=== PATIENT | female | born 1945 | race Caucasian/White ===

== ENCOUNTER → 2017-01-02 | Outpatient (CLI) | payer OTHER ==
[~2017-01-02] MED LIST: OPHTHALMIC IRRIG SOLUTION 120 ML ONE; PILOCARPINE 2% 15ML OPH ONE; PROPARACAINE 0.5% 15 ML OPH ONE
== END | disposition home or self-care (01) ==
LOC: RAD 10:37
PROVIDERS: ATTEND Ophthalmology
DX: H40.20X0 Unspecified primary angle-closure glaucoma, stage unspecified (principal)
CPT/HCPCS: 66761; Z7610

== ENCOUNTER 2017-09-21 11:18 | Emergency (ER) | payer OTHER ==
[~2017-09-21] VITALS: Ht 157.5 cm; Wt 42.5 kg
[2017-09-21 11:26] VITALS: Ht 157.5 cm; Wt 42.5 kg
--- NOTE | 2017-09-21 12:13 | ERD ---
ER Documentation Chief Complaint Chief Complaint R. eye pain/swelling x 3 days, seen @ [facility] x yesterday HPI The patient is a 72-year-old female, presenting to the ER because of right inferior orbital redness and swelling for 3 days, seen at [facility] yesterday, was given IV antibiotic and discharged with Augmentin She is not getting better, therefore she came to the ER. She denies headache, blurred vision, diplopia, neck pain, chest pain, dyspnea, abdominal pain, vomiting. She does not smoke nor drink Past medical history: Dyslipidemia Past surgical history: Glaucoma ROS All systems reviewed and are negative except as per history of present illness. Allergies Allergies: Coded Allergies: No Known Allergy (Unverified , 09/21/17) Physical Exam Vitals Vital Signs Date Time Temp Pulse Resp B/P Pulse Ox O2 Delivery O2 Flow Rate FiO2 09/21/17 17:00 98.3 99 20 99/72 100 Room Air 09/21/17 16:04 98.3 77 20 125/59 100 Room Air 09/21/17 14:00 98.3 77 20 128/53 98 Nasal Cannula 2.0 09/21/17 13:22 98.3 72 20 134/59 100 Room Air 09/21/17 11:26 99.2 104 19 137/66 98 Physical Exam Const: No acute distress. Head: Atraumatic. Eyes: Normal Conjunctiva. ENT: Normal External Ears, Nose and Mouth.infero-orbital erythema with fluctuance, No nystagmus, right conjunctiva is erythematous, no discharge Neck: Full range of motion. No meningismus. Resp: Clear to auscultation bilaterally. Cardio: Regular rate and rhythm. Abd: Soft, non distended, normal bowel sounds, non tender. Skin: No petechiae or rashes. Back: No midline or flank tenderness. Ext: No cyanosis, or edema. Neur: Awake and alert. No focal deficit Psych: Normal Mood and Affect. Result Diagram: 09/21/17 1235 09/21/17 1235 Results 24 hrs Laboratory Tests Test 09/21/17 12:35 White Blood Count 11.710^3/ul Red Blood Count 3.9810^6/ul Hemoglobin 11.2g/dl Hematocrit 33.7% Mean Corpuscular Volume 84.7fl Mean Corpuscular Hemoglobin 28.1pg Mean Corpuscular Hemoglobin Concent 33.2g/dl Red Cell Distribution Width 13.1% Platelet Count 21943^3/UL Mean Platelet Volume 9.3fl Neutrophils % 71.9% Lymphocytes % 17.7% Monocytes % 9.1% Eosinophils % 0.7% Basophils % 0.3% Nucleated Red Blood Cells % 0.0/100WBC Neutrophils # 8.410^3/ul Lymphocytes # 2.110^3/ul Monocytes # 1.110^3/ul Eosinophils # 0.110^3/ul Basophils # 0.010^3/ul Nucleated Red Blood Cells # 0.010^3/ul Sodium Level 143mmol/L Potassium Level 3.7mmol/L Chloride Level 104mmol/L Carbon Dioxide Level 26mmol/L Anion Gap 17 Blood Urea Nitrogen 13mg/dl Creatinine 0.88mg/dl Glucose Level 126mg/dl Calcium Level 9.9mg/dl Current Medications Medications (Trade) Dose Ordered Sig/Bettie Route PRN Reason Start Time Stop Time Status Last Admin Dose Admin Vancomycin HCl 250 ml @ 125 mls/hr ONCE IVPB 09/21/17 13:00 09/21/17 14:59 DC 09/21/17 13:16 Piperacillin Sod/ Tazobactam Sod (Zosyn 3.375gm/ 50 ml (Pmx)) 50 ml @ 100 mls/hr ONCE ONCE IV 09/21/17 13:00 09/21/17 13:29 DC 09/21/17 12:56 IV Flush 10 ml 10 ml STK-MED ONCE .ROUTE 09/21/17 13:43 09/21/17 13:44 DC Sodium Chloride 100 ml @ ud STK-MED ONCE .ROUTE 09/21/17 13:43 09/21/17 13:44 DC Iohexol (Omnipaque) 100 ml @ ud STK-MED ONCE .ROUTE 09/21/17 13:43 09/21/17 13:44 DC Morphine Sulfate (morphine) 2 mg ONCE STAT IV 09/21/17 15:56 09/21/17 15:57 DC 09/21/17 16:03 Ondansetron HCl (Zofran Inj) 4 mg ONCE STAT IV 09/21/17 15:56 09/21/17 15:57 DC 09/21/17 16:03 Procedures/MDM [place] [address] Radiology Main Line: [phone] DIAGNOSTIC IMAGING REPORT Patient: NGUYEN ENRIQUE : 1945 Age: 72 Sex: F MR #: [id number] DOS: 09/21/17 1234 Ordering MD: SCARLETT SYLVESTER MD Location: [facility] Room/Bed: PROCEDURE: CT Orbits with contrast. CLINICAL INDICATION: Right eye pain and swelling. Facial infection. TECHNIQUE: A CT of the orbits was performed on a multi-slice CT scanner utilizing thin section axial images with 80 cc of Omnipaque-350 intravenous contrast. Sagittal and coronal reformatted images were made. The images were reviewed on a PACS workstation. The CTDIvol is 53.72 mGy and the DLP is 993.93 mGycm. DICOM images are available. One or more of the following dose reduction techniques were used: Automated exposure control. Adjustment of the mA and/or kV according to patient size. Use of iterative reconstruction technique. COMPARISON: None. FINDINGS: There is marked right infraorbital soft tissue swelling with approximately 1.5 x 2 cm loculated fluid collection medially concerning for soft tissue abscess. The fluid collection appears to communicate with the right nasolacrimal duct. The osseous structures are intact with no fracture or osseous abnormality identified. The extraocular muscles and optic nerves are bilaterally symmetric and normal in appearance. The globes are unremarkable. The lacrimal glands appear normal. No abnormal attenuation of the intra or extraconal fat is identified. The sella turcica is unremarkable. IMPRESSION: 1. Marked right infraorbital soft tissue swelling with approximately 1.5 x 2 cm loculated fluid collection medially concerning for preseptal cellulitis complicated with soft tissue abscess. The fluid collection appears to communicate with the right nasolacrimal duct suggesting possibility of dacryocystitis. No post-septal inflammation. No paranasal sinus disease. RPTAT: HHO .Jori Mireles MD, Date Time Electronically viewed and signed by .Jori Mireles MD, on 09/21/2017 15:23 .O/ CC: SCARLETT SYLVESTER MD MEDICAL MAKING DECISION: The patient is a 72-year-old female, presenting with right preseptal cellulitis, right dacryocystitis.. She was treated with vancomycin IV, Zosyn IV for acute preseptal cellulitis, morphine 2 mg IV for pain, Zofran 4 mg IV for nausea with good response. The differential diagnoses considered include but are not limited to orbital cellulitis/abscess, facial cellulitis/abscess Departure Diagnosis: Primary Impression: Preseptal cellulitis of right eye Additional Impressions: Dacryoadenitis of right lacrimal gland Anemia Condition: Stable Comments I discussed the patient with the on-call hospitalist Dr Bonner, who recommended to transfer the patient because we do not have available ophthalmology in the hospital She is currently awaiting for transfer for higher level of care The patient's blood pressure was elevated (>120/80) but appears stable without evidence of hypertension emergency or urgency. The patient was counseled about the risks of hypertension and urged to pursue outpatient monitoring and therapy within a week with their primary care physician. SCARLETT SYLVESTER MD Sep 21, 2017 12:13
[2017-09-21 12:49] LABS: BASOPHILS % 0.3 % (0.0-2.0); EOSINOPHILS # 0.1 10^3/ul (0.0-0.5); EOSINOPHILS % 0.7 % (0.0-7.0); HEMATOCRIT 33.7 % (37.0-47.0); HEMOGLOBIN 11.2 g/dl (12.0-16.0); LYMPHOCYTES # 2.1 10^3/ul (0.8-2.9); LYMPHOCYTES % 17.7 % (15.0-51.0); MEAN CORPUSCULAR HEMOGLOBIN 28.1 pg (29.0-33.0); MEAN CORPUSCULAR HGB CONC 33.2 g/dl (32.0-37.0); MEAN CORPUSCULAR VOLUME 84.7 fl (82.0-101.0); MEAN PLATELET VOLUME 9.3 fl (7.4-10.4); MONOCYTE # 1.1 10^3/ul (0.3-0.9); MONOCYTES % 9.1 % (0.0-11.0); NEUTROPHIL # 8.4 10^3/ul (1.6-7.5); NEUTROPHILS % 71.9 % (39.0-77.0); PLATELET COUNT 479 10^3/UL (140-415); RED BLOOD COUNT 3.98 10^6/ul (4.20-5.40); RED CELL DISTRIBUTION WIDTH 13.1 % (11.5-14.5); WHITE BLOOD COUNT 11.7 10^3/ul (4.8-10.8)
[2017-09-21] MEDS ORDERED: VANCOMYCIN 1 GM (PMX) 250 ML IVPB SCH (13:00)
[2017-09-21] MEDS ORDERED: PIPER-TAZO 3.375 GM IV (PMX) 50 ML IV ONE (13:00)
[2017-09-21 13:04] LABS: CALCIUM 9.9 mg/dl (8.4-10.2); CREATININE 0.88 mg/dl (0.44-1.00); POTASSIUM 3.7 mmol/L (3.5-5.1)
[2017-09-21] MEDS ORDERED: IOHEXOL 100 ML ONE (13:43)
[2017-09-21] MEDS ORDERED: SOD CHLORIDE 0.9% 100 ML ONE (13:43)
--- NOTE | 2017-09-21 15:23 | RADRPT ---
PROCEDURE: CT Orbits with contrast. CLINICAL INDICATION: Right eye pain and swelling. Facial infection. TECHNIQUE: A CT of the orbits was performed on a multi-slice CT scanner utilizing thin section axi al images with 80 cc of Omnipaque-350 intravenous contrast. Sagittal and coronal reformatted image s were made. The images were reviewed on a PACS workstation. The CTDIvol is 53.72 mGy and the DLP is 993.93 mGycm. DICOM images are available. One or more of the following dose reduction techniques were used: Automated exposure control. Adjustment of the mA and/or kV according to patient size. Use of iterative reconstruction technique. COMPARISON: None. FINDINGS: There is marked right infraorbital soft tissue swelling with approximately 1.5 x 2 cm loculated flui d collection medially concerning for soft tissue abscess. The fluid collection appears to communicat e with the right nasolacrimal duct. The osseous structures are intact with no fracture or osseous ab normality identified. The extraocular muscles and optic nerves are bilaterally symmetric and normal in appearance. The globes are unremarkable. The lacrimal glands appear normal. No abnormal atten uation of the intra or extraconal fat is identified. The sella turcica is unremarkable. IMPRESSION: 1. Marked right infraorbital soft tissue swelling with approximately 1.5 x 2 cm loculated fluid col lection medially concerning for preseptal cellulitis complicated with soft tissue abscess. The fluid collection appears to communicate with the right nasolacrimal duct suggesting possibility of dacryo cystitis. No post-septal inflammation. No paranasal sinus disease. RPTAT: HHO .Jori Mireles MD, Date Time Electronically viewed and signed by .Jori Mireles MD, MD on 09/21/2017 15:23 .O/
[2017-09-21] MEDS ORDERED: ONDANSETRON 4 MG INJ IV STA (15:56)
[2017-09-21] MEDS ORDERED: morphine 2 MG INJ IV STA (15:56)
[2017-09-21] MEDS ORDERED: VANCOMYCIN IV PER PHARMACY XX SCH (21:00)
[2017-09-22] MEDS ORDERED: PIPER-TAZO 3.375 GM IV (PMX) 50 ML IV SCH
[2017-09-22 00:05] VITALS: BP 124/88; PULSE 74; RESP 16; TEMP 98.2
[2017-09-22] MEDS ORDERED: VANCOMYCIN 500MG/NS (PMX) 100 ML IVPB SCH (01:00)
== END 2017-09-22 00:20 | disposition short-term general hospital (02) ==
LOC: FTE 11:18 → E/R 09-22 00:20
DX: H05.011 Cellulitis of right orbit (principal); H04.011 Acute dacryoadenitis, right lacrimal gland; D64.9 Anemia, unspecified; R40.2142 Coma scale, eyes open, spontaneous, at arrival to emergency department; R40.2252 Coma scale, best verbal response, oriented, at arrival to emergency department; R40.2362 Coma scale, best motor response, obeys commands, at arrival to emergency department
CPT/HCPCS: 70480; 80048; 85025; 96374; 96375; J2270; J2405; J2543; J3370; Q9967; Z7502; Z7610

== ENCOUNTER → 2017-11-06 | Outpatient (CLI) | END | disposition home or self-care (01) ==